=== PATIENT | female | born 2000 | race Caucasian/White ===

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

== ENCOUNTER → 2022-04-08 | Outpatient (CLI) | payer OTHER ==
[~2022-04-08] MED LIST changes: +Zithromax250 MG PO
[2022-04-08 14:03] LABS: Candida species (DNA Probe) Negative (NEGATIVE); G. vaginalis (DNA Probe) Negative (NEGATIVE); T. vaginalis (DNA Probe) Negative (NEGATIVE)
[2022-04-10 02:14] LABS: CHLAMYDIA TRACHOMATIS, NAA Negative (Negative)
== END ==
LOC: LAB 09:00 → LAB SHORT 09:00
PROVIDERS: Physician Assistant Medical
DX: Z11.3 Encounter for screening for infections with a predominantly sexual mode of transmission (principal)
CPT/HCPCS: 87480; 87491; 87510; 87591; 87660

== ENCOUNTER → 2023-11-06 | Outpatient (CLI) | payer OTHER | LOC: LAB SHORT 15:40 → LAB 15:40 | DX: R30.0 Dysuria (principal) | CPT/HCPCS: 87077; 87086; 87186 ==

== ENCOUNTER 2024-10-29 21:17 | Inpatient (IN) | payer BC ==
[~2024-10-29] VITALS: Ht 162.6 cm; Wt 89.8 kg
[2024-10-29] VITALS (8 sets, daily range): BP systolic 146–159; BP diastolic 74–106
[2024-10-29] MEDS ORDERED: Tranexamic Acid 100 ML IV SCH (22:05)
[2024-10-29] MEDS ORDERED: OXYTOCIN/RINGER'S LACTATE 500 ML IV PRN (22:05)
[2024-10-29] MEDS ORDERED: ePHEDrine Sulfate 50 MG/ML 1ML Injection XX PRN (22:05)
[2024-10-29] MEDS ORDERED: Carboprost Tromethamine 250 MCG/ML 1ML Amp IM PRN (22:05)
[2024-10-29] MEDS ORDERED: Oxytocin 10 Unit / ML Vial IM PRN (22:05)
[2024-10-29] MEDS ORDERED: Methylergonovine Maleate 0.2MG / ML 1ML Amp IM PRN (22:05)
[2024-10-29] MEDS ORDERED: Ondansetron HCl 2 MG / ML 2ML Vial IV PRN (22:05)
[2024-10-29] MEDS ORDERED: Calcium Carbonate 500 MG Tab Chew PO PRN (22:05)
[2024-10-29] MEDS ORDERED: Misoprostol 200 MCG Tab PR PRN (22:05)
[2024-10-29] MEDS ORDERED: Misoprostol 200 MCG Tab BC PRN (22:05)
[2024-10-29] MEDS ORDERED: Lactated Ringer's 1,000 ML IV PRN ×3 (22:05)
[2024-10-29] MEDS ORDERED: FentaNYL 2mcg/ml-Bup 0.1% Epd 250 ML EPI PRN (22:05)
[2024-10-29] MEDS ORDERED: Acetaminophen 500 MG Tab PO PRN (22:05)
[2024-10-29] MEDS ORDERED: FentaNYL Citrate 50 MCG/ML 2 ML Injection IV PRN (22:10)
[2024-10-29 22:21] LABS: BASOPHILS ABSOLUTE AUTO 0.05 K/mm3 (0.00-0.23); BASOPHILS PERCENT AUTO 0 % (0-2); EOSINOPHILS ABSOLUTE AUTO 0.16 K/mm3 (0.00-0.68); EOSINOPHILS PERCENT AUTO 1 % (0-6); Hematocrit 35.3 % (33.0-51.0); Hemoglobin 11.8 g/dL (11.5-16.0); IMMATURE GRAN PERCENT AUTO 1 % (0-1); LYMPHOCYTES PERCENT AUTO 15 % (21-46); MONOCYTES ABSOLUTE AUTO 1.29 K/mm3 (0.16-1.47); MONOCYTES PERCENT AUTO 7 % (4-13); Mean Corpuscular HGB 24.6 pg (26.0-34.0); Mean Corpuscular HGB Conc 33.4 g/dL (31.5-36.5); Mean Corpuscular Volume 74 fL (80-100); NEUTROPHILS ABSOLUTE AUTO 15.26 K/mm3 (1.96-9.15); NEUTROPHILS PERCENT AUTO 77 % (41-73); Platelet Count 292 K/mm3 (150-400); RDW Standard Deviation 43.6 fL (35.1-46.3); Red Blood Cell Count 4.79 M/mm3 (3.80-5.20); White Blood Cell Count 19.76 K/mm3 (4.00-11.30)
[2024-10-29 22:29] LABS: Mean Platelet Volume 12.3 fL (9.1-12.4)
[2024-10-29] MEDS ORDERED: FentaNYL Citrate 50 MCG/ML 2 ML Injection ONE (23:07)
[2024-10-29] MEDS ORDERED: DiphenhydrAMINE HCl 50 MG/ML 1ML Vial ONE (23:27)
[2024-10-29] MEDS ORDERED: DiphenhydrAMINE HCl 50 MG/ML 1ML Vial IV PRN (23:30)
[2024-10-30] VITALS (63 sets, daily range): BP systolic 100–175; BP diastolic 56–123
--- NOTE | 2024-10-30 00:03 | NUR ---
0003- Dr. Santos at bedside. Strip and BP's reviewed. Will US to confirm presentation. 0013- Unable to get US machine to work. SVE done by Dr. Santos. States patient is 8-9 cm and vertex presentation.
--- NOTE | 2024-10-30 00:46 | NUR ---
0046- Call to Dr. Santos to review tracing, decelerations present and to come to the bedside. 0049- Dr. Santos at bedside. FHR tracing and BP's reviewed. SVE done by Dr. Santos. Confirmed to be complete. Positioning patient to begin pushing. 0055- Presentation confirmed Breech. Plan to proceed with section.
[2024-10-30] MEDS ORDERED: NS 0 ML IV ONE (00:52)
[2024-10-30] MEDS ORDERED: Lactated Ringer's 1,000 ML IV SCH ×4 (01:00→05:05)
[2024-10-30] MEDS ORDERED: Azithromycin 500 MG in NS 250 ML IV SCH ×2 (01:00→01:10)
[2024-10-30] MEDS ORDERED: CeFAZolin Sodium 2,000 MG in NS 100 ML IV SCH ×2 (01:00→01:15)
[2024-10-30] MEDS ORDERED: Citric Acid/Sodium Citrate 30 ML BTL PO PRN (01:05)
[2024-10-30] MEDS ORDERED: Metoclopramide HCl 5MG / ML 2ML Vial IV SCH (01:05)
[2024-10-30] MEDS ORDERED: Lidocaine 2%-Epineph 1:200000 20 ML SDV ONE (01:15)
[2024-10-30] MEDS ORDERED: Morphine Sulfate/PF 1 MG/ML 10MLVIAL ONE (01:15)
[2024-10-30] MEDS ORDERED: Sodium Bicarb 8.4% 1 MEQ/ML 50 ML Vial ONE (01:15)
[2024-10-30] MEDS ORDERED: FentaNYL Citrate 50 MCG/ML 2 ML Injection ONE (01:15)
[2024-10-30] MEDS ORDERED: Dexamethasone Sod Phos 10 MG/ML 1ML VIAL ONE (01:33)
[2024-10-30] MEDS ORDERED: Ondansetron HCl 2 MG / ML 2ML Vial ONE (01:33)
[2024-10-30] MEDS ORDERED: Metoclopramide HCl 5MG / ML 2ML Vial ONE (01:33)
[2024-10-30] MEDS ORDERED: Ketorolac Tromethamine 30mg Vial ONE (01:35)
[2024-10-30] MEDS ORDERED: Oxytocin 10 Unit / ML Vial ONE (01:35)
[2024-10-30] MEDS ORDERED: Midazolam HCl 1MG / ML 2ML Vial ONE (01:37)
[2024-10-30] MEDS ORDERED: ePHEDrine Sulfate 50 MG/ML 1ML Injection ONE (01:51)
[2024-10-30 01:57] LABS: PCO2 Cord - Arterial 60.8 mmHg (40-50); PO2 Cord - Arterial < 14.0 mmHg (16-20); pH Cord - Arterial 7.22 (7.28-7.35)
[2024-10-30 01:59] LABS: PCO2 Cord - Venous 47.5 mmHg (40-50); PO2 Cord - Venous 18.6 mmHg (28-32)
[2024-10-30] MEDS ORDERED: Misoprostol 200 MCG Tab PR PRN (02:30)
[2024-10-30] MEDS ORDERED: Methylergonovine Maleate 0.2MG / ML 1ML Amp IM PRN (02:30)
[2024-10-30] MEDS ORDERED: Lanolin Cream TOP PRN (02:30)
[2024-10-30] MEDS ORDERED: Ondansetron HCl 2 MG / ML 2ML Vial IV PRN (02:30)
[2024-10-30] MEDS ORDERED: Morphine Sulfate 4 MG/1 ML Injection IV PRN (02:35)
[2024-10-30] MEDS ORDERED: Simethicone 80 MG Chew PO PRN (02:35)
[2024-10-30] MEDS ORDERED: OxyCODONE HCL 5 MG TAB PO PRN (02:35)
[2024-10-30] MEDS ORDERED: OxyCODONE 5 mg/Acetamin 325 mg TABLET PO PRN (02:35)
[2024-10-30] MEDS ORDERED: OXYTOCIN/RINGER'S LACTATE 500 ML IV SCH (02:40)
[2024-10-30] MEDS ORDERED: Acetaminophen 500 MG Tab PO PRN (02:40)
[2024-10-30] MEDS ORDERED: DiphenhydrAMINE HCL 25 MG Cap PO PRN ×2 (02:40→17:15)
[2024-10-30] MEDS ORDERED: Ketorolac Tromethamine 30mg Vial IV SCH (03:00)
[2024-10-30] MEDS ORDERED: Magnesium Sulf 2 GM/Water 50ML 50 ML IV ONE (04:55)
[2024-10-30] MEDS ORDERED: Calcium Gluconate 0.465 mEq/ml 10 ml Vial IV PRN ×2 (04:55→05:05)
[2024-10-30] MEDS ORDERED: Magnesium Sulf 2 GM/Water 50ML 50 ML IV SCH (04:55)
[2024-10-30] MEDS ORDERED: Magnesium Sul 4 GM/Water100 ML 100 ML IV ONE ×2 (04:55→05:05)
[2024-10-30] MEDS ORDERED: Magnesium Sulfate 500 ML IV SCH ×3 (04:55→05:05)
[2024-10-30] MEDS ORDERED: Labetalol HCL 5 MG/ML 4ML Injection (Single Dose) IV PRN ×2 (05:05)
[2024-10-30] MEDS ORDERED: Labetalol HCL 5 MG/ML 4ML Injection (Single Dose) IV ONE ×3 (05:05→19:25)
[2024-10-30] MEDS ORDERED: Labetalol HCL 5 MG/ML 4ML Injection (Single Dose) ONE ×3 (05:09→19:17)
[2024-10-30] MEDS ORDERED: Magnesium Sulfate 500 ML IV ONE (05:11)
--- NOTE | 2024-10-30 05:25 | NUR ---
LUNGS CLEAR BILATERALLY, ALERT AND ORIENTED, DTR'S 2+, PATIENT DENIES LEE, VISUAL CHANGES, EPIGASTRIC PAIN.
[2024-10-30 05:31] LABS: Hematocrit 32.9 % (33.0-51.0); Hemoglobin 10.6 g/dL (11.5-16.0); Mean Corpuscular HGB 23.9 pg (26.0-34.0); Mean Corpuscular HGB Conc 32.2 g/dL (31.5-36.5); Mean Corpuscular Volume 74 fL (80-100); Platelet Count 237 K/mm3 (150-400); RDW Coefficient Variation 16.7 % (11.7-14.2); RDW Standard Deviation 44.6 fL (35.1-46.3); Red Blood Cell Count 4.43 M/mm3 (3.80-5.20); White Blood Cell Count 25.12 K/mm3 (4.00-11.30)
[2024-10-30 05:36] LABS: Mean Platelet Volume 12.1 fL (9.1-12.4)
[2024-10-30 06:13] LABS: Albumin, Blood 2.4 g/dL (3.4-5.0); Albumin/Globulin Ratio 0.6 (0.8-1.8); Bilirubin, Total 0.2 mg/dL (0.1-1.0); Bun/Creatinine Ratio 22.3 (12.0-20.0); Calcium, Blood 8.7 mg/dL (8.5-10.1); Creatinine, Blood 0.63 mg/dL (0.40-1.00); Globulin, Blood 3.9 g/dL (2.2-4.0); Magnesium, Blood 1.7 mg/dL (1.6-2.4); Potassium, Blood 3.9 mmol/L (3.5-5.5); Total Protein, Blood 6.3 g/dL (6.4-8.2)
[2024-10-30 06:26] LABS: BASOPHILS PERCENT MAN 0 % (0-2); EOSINOPHILS PERCENT MAN 0 % (0-6); LYMPHOCYTES PERCENT MAN 4 % (21-46); MONOCYTES PERCENT MAN 0 % (4-13); NEUTROPHILS ABSOLUTE MAN 24.11 K/mm3 (1.96-9.15); SEG NEUTROPHILS PERCENT MAN 96 % (41-73); TOTAL CELLS COUNTED 100
[2024-10-30 06:45] LABS: International Normalized Ratio 0.92; Prothrombin Time Results 9.9 Sec (9.7-11.5)
[2024-10-30] MEDS ORDERED: Ibuprofen 400 MG Tab PO SCH (08:00)
[2024-10-30] MEDS ORDERED: Docusate Sodium 100 MG Cap PO SCH (09:00)
[2024-10-30] MEDS ORDERED: Prenatal Vit/FE Fumarate/FA 1 Tab PO SCH (09:00)
--- NOTE | 2024-10-30 15:52 | NUR ---
BP MONITORING POSTPONED AT THIS TIME FOR MATERNAL BONDING
[2024-10-30] MEDS ORDERED: DiphenhydrAMINE HCl 50 MG/ML 1ML Vial IV ONE (17:15)
[2024-10-30] MEDS ORDERED: Labetalol HCL 100 MG TAB PO SCH (17:15)
--- NOTE | 2024-10-30 19:27 | NUR ---
PT HAS SEVERE BP THIS AFTERNOON AFTER TAKING PO LABATALOL. STATES CONCERNS OVER HAVING TO TAKE ADDITIONAL MEDICATIONS TO CONTROL BP, WANTING TO "LET MY BODY WORK IT OUT". EDUCATION GIVEN, PT STATING SHE DOES NOT FEEL INFORMED ENOUGHT TO MAKE A DECISION. ASHLEY NICHOLE CHARGE NURSE IN TO DISCUSS CONCERNS WITH PT WELL. LIGHT DIMMED, BED FLATTENED. ENCOURAGED TO RELAX. PT CONTINUES TO DECLINE ADDITIONAL MEDICATIONS BUT STATES QUESTIONS HAVE BEEND ADDRESSED. DR. FERRIS CALL INFORMED OF PT'S ELEVATED BP'S AND DECLINING MEDICATIONS AT THIS TIME. STATES TO CONTINUE RELAXATION MEASURES. ORDERS RECEIVED FOR AVIALABILITY IF PT AGREES TO TAKE THEM. WILL CONTINUE TO REEDUCATE PT. VALERIA ESPARZA ON NOC SHIFT INFORMED.
[2024-10-30] MEDS ORDERED: Sertraline HCl 50 MG Tab PO SCH (21:00)
[2024-10-30] MEDS ORDERED: Ketorolac Tromethamine 30mg Vial IV PRN (21:20)
[2024-10-31] VITALS (23 sets, daily range): BP systolic 103–169; BP diastolic 65–108
[2024-10-31] MEDS ORDERED: Labetalol HCL 100 MG TAB PO SCH (14:00)
[2024-10-31] MEDS ORDERED: Percocet 5-3251 EACH PO (22:37)
[2024-10-31] MEDS ORDERED: IBU800 MG PO (22:38)
[2024-10-31] MEDS ORDERED: LABE100 PO (22:39)
[2024-11-01 04:24] VITALS: BP 130/79
[2024-11-01 07:37] VITALS: BP 144/97
[2024-11-01 08:29] VITALS: BP 144/100
[2024-11-01 09:37] VITALS: BP 127/93
--- NOTE | 2024-11-01 09:45 | NUR ---
PT AMBULATES TO NURSERY INDEPENDENTLY.
[2024-11-01 11:34] VITALS: BP 133/86
--- NOTE | 2024-11-01 11:39 | NUR ---
REVIEWED MMR VACCINE WITH PT, EDUCATED ON REASONING FOR RECEIVING. PT REFUSED AT THIS TIME.
[2024-11-01 14:00] VITALS: BP 137/102
--- NOTE | 2024-11-01 14:04 | NUR ---
PT MOVED TO BOARDER STATUS
[2024-11-02 12:20] LABS: HEPATITIS C AB CIA INTERP Negative (Negative); HEPATITIS C ANTIBODY CIA INDEX 0.13 IV
== END 2024-11-01 14:15 | disposition home or self-care (01) | DRG 787 ==
LOC: OBS 21:17 → BC 21:47
PROVIDERS: ADMIT Obstetrics & Gynecology
PROC: 10D00Z1 Extraction of Products of Conception, Low, Open Approach (ICD-10-PCS; principal; 2024-10-30 01:15)
DX: O32.1XX0 Maternal care for breech presentation, not applicable or unspecified (principal); O47.1 False labor at or after 37 completed weeks of gestation; Z37.0 Single live birth; O14.95 Unspecified pre-eclampsia, complicating the puerperium; Z3A.39 39 weeks gestation of pregnancy
CPT/HCPCS: 36415; 51702; 59025; 80053; 82565; 82803; 83615; 83735; 85025; 85384; 85610; 85730; 86803; 86850; 86900; 86901; 86923; 99214; A9270; J0456; J0690; J1100; J1200; J1885; J2250; J2274; J2405; J2590; J2765; J3010; J3475; J7050; J7120